=== PATIENT | male | born 1990 | race Caucasian/White ===

== ENCOUNTER 2019-08-25 19:06 | Emergency (ER) | payer OTHER ==
[~2019-08-25] VITALS: Ht 190.5 cm; Wt 68.2 kg
[2019-08-25 20:03] VITALS: BP 130/76; TEMP 99
[2019-08-25] MEDS ORDERED: VIIBRYD20 MG PO (20:39)
[2019-08-25 21:50] VITALS: PULSE 66
== END 2019-08-25 21:50 | disposition home or self-care (01) ==
LOC: COL.ER 19:06
DX: S06.0X0A Concussion without loss of consciousness, initial encounter (principal); S16.1XXA Strain of muscle, fascia and tendon at neck level, initial encounter; F32.9 Major depressive disorder, single episode, unspecified; V43.52XA Car driver injured in collision with other type car in traffic accident, initial encounter
CPT/HCPCS: J1885

== ENCOUNTER → 2019-08-28 | Outpatient (CLI) | payer OTHER ==
[~2019-08-28] MED LIST: VIIBRYD20 MG PO
== END ==
LOC: COL.RAD 12:53
DX: S06.0X0A Concussion without loss of consciousness, initial encounter (principal); Z87.828 Personal history of other (healed) physical injury and trauma